=== PATIENT | female | born 1960 | race Caucasian/White ===

== ENCOUNTER 2024-01-05 13:02 | Outpatient (AMB) | payer OTHER, SELFPAY ==
--- NOTE | 2024-01-05 13:13 | A.OFFPC_ITS ---
Vital Signs 01/05/24 13:14 Height 5 ft 3 in BP 108/68 Blood Pressure Location Rt brachial Position Sitting Respiration 13 Pulse 87 Pulse Source Pulse Oximeter Pulse Oximetry (%) 99 Oxygen Delivery Method Room Air Intake Visit Reasons: ESTHETICIAN/OWNER, medication follow up Intake Note: Patient is here to establish care with [facility] [place] Patient reports she will be having open heart surgery in February 02, 2024. Patient reports she needs refills of medications. 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 Accompanied by: Self / Same As Patient Allergies No Known Allergies Allergy (Verified 01/05/24 13:23) Tobacco use date assessed: 01/05/24 Dental Screening Dental Screen Date: 01/05/24 Did you have a dental visit in the last 12 months?: Yes Did you have a dental problem in the last 6 months where you did not have access to dental care?: No Was dental information given to patient?: Patient has dentist HPI HPI Comments History of Present Illness Details The patient is a 63 year old female with a past medical history of hypertension, hyperlipidemia, GERD, aortic stenosis, subclavian artery stenosis, depression, FELICIANO, obesity s/p laparoscopoic sleeve gastrectomy presenting for follow up CV: Hypertension, hyperlipidemia, aortic stenosis. History of possible subcla vian steal. Follows with cardiology, Dr Rodriguez and Dr Keen, vascular. Carotid s/us 2020. Denies chest pain, shortness of breath. She is following with cardiology. Plan for open heart aortic valve replacement which she is anxious about but doing ok Depression: we controlled on wellbutrin and prozac. Previously and alcoholic- sober x 7 years FELICIANO: On modafinil. Follows with Dr Wilkerson Obesity: Follows with Dr Shipman. History of lap sleeve gastrectomy. Currently on wellbutrin & naltrexone. Successfully lost 70 pounds with Wegovy Preventive Mammo 03/2023 Pap 07/10/2018 ROS CONSTITUTIONAL: Denies weight loss, fever and chills. HEENT: Denies changes in vision and hearing. RESPIRATORY: Denies SOB and cough. CV: Denies palpitations and CP GI: Denies abdominal pain, nausea, vomiting and diarrhea. : Denies dysuria and urinary frequency. MSK: Denies new myalgia and joint pain. SKIN: Denies rash and pruritus. NEUROLOGICAL: Denies headache PSYCHIATRIC: Denies recent changes in mood. PHYSICAL EXAM: GENERAL: Alert and oriented x 3. NAD EYES: EOMI. Anicteric. HENT: Moist mucous membranes. No scleral icterus. No cervical lymphadenopathy. LUNGS: Clear to auscultation bilaterally. CARDIOVASCULAR: Regular rate and rhythm. +murmur ABDOMEN: Soft, non-tender +bs EXTREMITIES: No edema. Non-tender. SKIN: No rashes or lesions. Warm. NEUROLOGIC: No focal neurological deficits. CN II-XII grossly intact PSYCHIATRIC: Cooperative. Appropriate mood and affect [facility] Medical History (Updated 01/11/24 @ 10:59 by Eve Ash MD) Senile purpura Tubular adenoma of colon History of mammogram FELICIANO (obstructive sleep apnea) Major depression, recurrent Subclavian artery stenosis GERD (gastroesophageal reflux disease) Moderate aortic stenosis Hyperlipidemia Hypertension Surgical History History of colonoscopy Family History Mother Crohn disease Multiple sclerosis Father Dementia Diabetes Stroke Brother Idiopathic pulmonary fibrosis Diabetes Coronary artery disease Brother Coronary artery disease Social History Household Members: Significant Other Housing: House Alcohol intake: former Year quit: 2006 Patient Tobacco Use Status: Former Tobacco user Tobacco use type: Cigarette Cigarettes Per Day: 1 Years Smoked: 30 e-Cigarette/Vaping Use: Never Used service: No Current occupational status: retired Cognitive needs: No Hearing needs: No Vision needs: No Physical exam (Primary Care) Vital Signs: Last Vital Signs Pulse 87 01/05/24 13:14 Resp 13 01/05/24 13:14 BP 108/68 01/05/24 13:14 Pulse Ox 99 01/05/24 13:14 Oxygen Delivery Method Room Air 01/05/24 13:14 Tobacco/Smoking Status: Tobacco use Status Tobacco use date assessed 01/05/24 01/05/24 13:27 Patient Tobacco Use Status Former Tobacco user 01/05/24 13:27 Tobacco use type Cigarette 01/05/24 13:27 e-Cigarette/Vaping Use Never Used 01/05/24 13:27 Assessment and Plan Assessment & Plan (1) Hypertension: Code(s): I10 - Essential (primary) hypertension Qualifiers: Hypertension type: primary hypertension Qualified Code(s): I10 - Essential (primary) hypertension Plan: well controlled on current medications maintain weight loss continue follow up/plan for open heart valve repair (2) FELICIANO (obstructive sleep apnea): Code(s): G47.33 - Obstructive sleep apnea (adult) (pediatric) Plan: Continue sleep f/up (3) Tubular adenoma of colon: Code(s): D12.6 - Benign neoplasm of colon, unspecified (4) Major depression, recurrent: Code(s): F33.9 - Major depressive disorder, recurrent, unspecified Qualifiers: Active/Remission status: in partial remission Qualified Code(s): F33.41 - Major depressive disorder, recurrent, in partial remission (5) History of tobacco use: Code(s): Z87.891 - Personal history of nicotine dependence Orders: Orders CT lung screening 01/05/24 I10 - Essential (primary) hypertension, Z87.891 - Personal history of nicotine dependence Medications: New calcium citrate 500 mg (2 x 250 mg calcium) PO DAILY 60 tabs 0RF fluticasone propionate 50 mcg/actuation (Allergy Relief (fluticasone)) administer into each nostril 1 spray intranasal DAILY 16 grams 0RF modafinil 300 mg (1.5 x 200 mg) PO DAILY 45 tabs 0RF plecanatide (Trulance) 3 mg PO DAILY 30 tabs 0RF semaglutide (weight loss) (Wegovy) 2.4 mg (0.75 mL) subcut QWEEK 9 mL 3RF bupropion HCl XL 300 mg PO QAM 90 tabs 3RF omeprazole 20 mg PO DAILY 90 caps 3RF lorazepam 0.5 mg PO TID PRN 30 tabs 0RF anxiety aspirin (Adult Aspirin Regimen) 81 mg PO DAILY 30 tabs 0RF docusate sodium (Colace) 100 mg PO DAILY 30 caps 0RF lisinopril 10 mg PO DAILY 30 tabs 0RF multivitamin 1 tab PO DAILY 30 tabs 0RF naltrexone 50 mg PO DAILY 30 tabs 0RF fluoxetine 40 mg PO DAILY 90 caps 3RF Coding Level of Care Code Est Pt Level 5 (97219) Diagnoses Primary hypertension I10 Hypertension type: primary hypertension FELICIANO (obstructive sleep apnea) G47.33 Tubular adenoma of colon D12.6 Recurrent major depressive disorder, in partial remission F33.41 Active/Remission status: in partial remission History of tobacco use Z87.891 Time Spent (min) 46
[2024-01-05 13:14] VITALS: BP 108/68; PULSE 87; RESP 13; O2SAT 99
== END 2024-01-05 14:13 | disposition home or self-care (01) ==
PROVIDERS: PCP Internal Medicine; Visit Provider Internal Medicine
DX: I10 Essential (primary) hypertension (principal); G47.33 Obstructive sleep apnea (adult) (pediatric); D12.6 Benign neoplasm of colon, unspecified; F33.41 Major depressive disorder, recurrent, in partial remission; Z87.891 Personal history of nicotine dependence
CPT/HCPCS: 99215

== ENCOUNTER 2024-03-22 15:38 | Outpatient (AMB) | payer OTHER, SELFPAY ==
--- NOTE | 2024-03-22 15:34 | MHC.PC.OV ---
Vital Signs 03/22/24 15:47 Height 5 ft 3 in Weight 175 lb 6 oz BMI 31.1 BP 118/72 Blood Pressure Location Rt brachial Position Sitting Respiration 16 Pulse 81 Pulse Source Pulse Oximeter Pulse Oximetry (%) 98 Oxygen Delivery Method Room Air Intake Visit Reasons: Heart surgery follow up Intake Note: Heart surgery follow up Community Education Specialist Required: No Allergies No Known Allergies Allergy (Verified 01/05/24 13:23) Tobacco use date assessed: 01/05/24 Dental Screening Dental Screen Date: 01/05/24 HPI HPI Comments History of Present Illness Details The patient is a 64 year old female with a past medical history of hypertension, hyperlipidemia, GERD, aortic stenosis, subclavian artery stenosis, depression, FELICIANO, obesity s/p laparoscopoic sleeve gastrectomy presenting for follow up CV: She underwent aortic valve replacement with a bio prosthetic valve February 01. She had postoperative bradycardia and hypovolemia which required Lasix. She had VNA services at home. She was then admitted February 17 for palpitations and found to have paroxysmal atrial fibrillation. She was started on amiodarone. At her last cardiac surgery visit she discussed weaning midodrine-she is now off. Hypertension, hyperlipidemia, aortic stenosis. 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 Follows with cardiology, Dr Rodriguez and Dr Keen, vascular. Carotid s/us 2020. Denies chest pain. some shortness of breath following recent covid Depression: we controlled on wellbutrin and prozac. Previously and alcoholic-sober x 7 years FELICIANO: On modafinil. Follows with Dr Wilkerson Obesity: Follows with Dr Shipman. History of lap sleeve gastrectomy. Currently on wellbutrin & naltrexone. Successfully lost 70 pounds with Wegovy-restarting this soon but at 1mg Preventive Mammo 03/2023 Pap 07/10/2018 ROS see HPI PHYSICAL EXAM: GENERAL: Alert and oriented x 3. NAD EYES: EOMI. Anicteric. HENT: Moist mucous membranes. No scleral icterus. No cervical lymphadenopathy. LUNGS: Clear to auscultation bilaterally. CARDIOVASCULAR: Regular rate and rhythm. +murmur ABDOMEN: Soft, non-tender +bs EXTREMITIES: No edema. Non-tender. SKIN: No rashes or lesions. Warm. NEUROLOGIC: No focal neurological deficits. CN II-XII grossly intact PSYCHIATRIC: Cooperative. Appropriate mood and affect [facility] Medical History (Updated 03/22/24 @ 16:20 by Eve Ash MD) Senile purpura Tubular adenoma of colon History of mammogram FELICIANO (obstructive sleep apnea) Major depression, recurrent Subclavian artery stenosis GERD (gastroesophageal reflux disease) Moderate aortic stenosis Hyperlipidemia Hypertension Surgical History (Updated 03/22/24 @ 16:07 by Eve Ash MD) History of colonoscopy Family History Mother Crohn disease Multiple sclerosis Father Dementia Diabetes Stroke Brother Idiopathic pulmonary fibrosis Diabetes Coronary artery disease Brother Coronary artery disease Social History Household Members: Significant Other Housing: House Alcohol intake: former Year quit: 2006 Patient Tobacco Use Status: Former Tobacco user Tobacco use type: Cigarette Cigarettes Per Day: 1 Years Smoked: 30 Packs per year/per ci.50 e-Cigarette/Vaping Use: Never Used service: No Current occupational status: retired Cognitive needs: No Hearing needs: No Vision needs: No Questionnaire Thrive Questionnaire Date Thrive assessed: 03/15/24 I am a: Patient What is your living situation today?: I have a steady place to live Within the past 12 months, did the food you bought not last and you didn't have the money to get more?: Never true Within the past 12 months, did you worry whether your food would run out before you got money to buy more?: Never true Do you have trouble paying for medicines?: No Do you have trouble getting transportation to medical appointments?: No Do you have trouble paying your heating and electricity bill?: No Do you have trouble taking care of your child, family member or friend?: No Do you have trouble with day-to-day activities such as bathing, preparing meals, shopping, managing finances, etc.?: No Are you currently unemployed and looking for a job?: No Are you interested in more education?: No Please select the resources that you would like help with: None Currently or been in a relationship where the following occur: No concerns reported THRIVE Score: 0 AUDIT C Alcohol Use Questionnaire (AUDIT-C) 1. How often do you have a drink containing alcohol?: Never Total Score: 0 RYNE-7 AMB Questionnaire RYNE-7 Feeling nervous, anxious, or on edge: 0 = Not at all Not being able to stop or control worryin = Not at all Worrying too much about different things: 0 = Not at all Trouble relaxin = Not at all Being so restless that it is hard to sit still: 0 = Not at all Becoming easily annoyed or irritable: 1 = Several days Feeling afraid as if something awful might happen: 0 = Not at all Total RYNE-7 score (0-4 normal; 5-9 mild; 10-14 moderate; 15-21 severe): 1 Source: Developed by Drs. Jose Dumont, Tosha Duran, Isidro Garcia and colleagues, with an educational charles from [employer]. Physical exam (Primary Care) Vital Signs: Last Vital Signs Pulse 81 03/22/24 15:47 Resp 16 03/22/24 15:47 BP 118/72 03/22/24 15:47 Pulse Ox 98 03/22/24 15:47 Oxygen Delivery Method Room Air 03/22/24 15:47 BMI result Body Mass Index 31.1 Tobacco/Smoking Status: Tobacco use Status Tobacco use date assessed 01/05/24 03/22/24 15:34 Patient Tobacco Use Status Former Tobacco user 03/22/24 15:34 Tobacco use type Cigarette 03/22/24 15:34 e-Cigarette/Vaping Use Never Used 03/22/24 15:34 Thrive Assessment: Date of Thrive Assessment Date Thrive assessed 03/15/24 03/22/24 15:34 Currently or been in a relationship where the following occur: No concerns reported Coding Level of Care Code Est Pt Level 4 (90292) Diagnoses Aortic valve replaced Z95.2 Assessment & Plan Assessment & Plan (1) Aortic valve replaced: Comment: needs dental prophylaxis Code(s): Z95.2 - Presence of prosthetic heart valve Category: Surgical Plan: Hold lisinopril -blood pressure maintains well controlled. Orders: Orders Alpha 1 Anti-trypsin 03/22/24 Z79.899 - Other [facility] (current[facility] drug therapy Medications: New amoxicillin one hour prior to dental appointment 2,000 mg (4 x 500 mg) PO ONCE PRN 20 tabs 3RF dental prophylaxis
[2024-03-22 15:47] VITALS: BP 118/72; PULSE 81; RESP 16; O2SAT 98; BMI 31.1
== END 2024-03-22 17:00 | disposition home or self-care (01) ==
PROVIDERS: PCP Internal Medicine; Visit Provider Internal Medicine
DX: Z95.2 Presence of prosthetic heart valve (principal)

== ENCOUNTER → 2024-03-22 15:38 | Outpatient (BNVA) | payer OTHER, SELFPAY | PROVIDERS: PCP Internal Medicine; Visit Provider Internal Medicine ==

== ENCOUNTER 2024-07-12 08:19 | Outpatient (AMB) | payer OTHER, SELFPAY ==
--- NOTE | 2024-07-12 08:23 | MHC.PC.OV ---
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 She had postoperative bradycardia and hypovolemia which required Lasix. She had VNA services at home. She was then admitted February 17 for palpitations and found to have paroxysmal atrial fibrillation. She was started on amiodarone. At her last cardiac surgery visit she discussed weaning midodrine-she is now off. Hypertension, hyperlipidemia, aortic stenosis. 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 Follows with cardiology, Dr Rodriguez and Dr Keen, vascular. Carotid s/us 2020. Denies chest pain. Depression: we controlled on wellbutrin and prozac. Previously and alcoholic-sober x 7 years FELICIANO: On modafinil. Follows with Dr Wilkerson Obesity: Follows with Dr Shipman. History of lap sleeve gastrectomy. Currently on wellbutrin & naltrexone. Successfully lost 70 pounds with Wegovy-on 2.4 currently but going to taper down on 1.7. Despite weight loss suffering from cervicalgia, thoracic and lumbar back pain. Preventive Mammo 03/2023-due, ordered. DXA ordered. Pap 07/10/2018 Colon cancer screening UTD-Dr Kunz ROS see HPI PHYSICAL EXAM: GENERAL: Alert and oriented x 3. NAD EYES: EOMI. Anicteric. HENT: Moist mucous membranes. No scleral icterus. No cervical lymphadenopathy. LUNGS: Clear to auscultation bilaterally. CARDIOVASCULAR: Regular rate and rhythm. +murmur ABDOMEN: Soft, non-tender +bs EXTREMITIES: No edema. Non-tender. SKIN: No rashes or lesions. Warm. NEUROLOGIC: No focal neurological deficits. CN II-XII grossly intact PSYCHIATRIC: Cooperative. Appropriate mood and affect [facility] Medical History (Updated 07/12/24 @ 09:20 by Eve Ash MD) Senile purpura Tubular adenoma of colon History of mammogram FELICIANO (obstructive sleep apnea) Major depression, recurrent Subclavian artery stenosis GERD (gastroesophageal reflux disease) Moderate aortic stenosis Hyperlipidemia Hypertension Surgical History History of colonoscopy Family History Mother Crohn disease Multiple sclerosis Father Dementia Diabetes Stroke Brother Idiopathic pulmonary fibrosis Diabetes Coronary artery disease Brother Coronary artery disease Social History (Updated 07/12/24 @ 08:31 by Mariel Kaye CMA) Household Members: Significant Other Housing: House Alcohol intake: former Year quit: 2006 Patient Tobacco Use Status: Former Tobacco user Tobacco use type: Cigarette Cigarettes Per Day: 1 Years Smoked: 30 e-Cigarette/Vaping Use: Never Used service: No Current occupational status: retired Cognitive needs: No Hearing needs: No Vision needs: No Questionnaire PHQ-9 Over the last 2 weeks, how often have you been bothered by any of the following problems? 1. Little interest or pleasure in doing things: not at all 2. Feeling down, depressed, or hopeless: not at all 3. Trouble falling or staying asleep, or sleeping too much: not at all 4. Feeling tired or having little energy: several days 5. Poor appetite or overeating: not at all 6. Feeling bad about yourself - or that you are a failure or have let yourself or your family down: not at all 7. Trouble concentrating on things, such as reading the newspaper or watching television: not at all 8. Moving or speaking so slowly that other people could have noticed. Or the opposite - being so fidgety or restless that you have been moving around a lot more than usual: not at all 9. Thoughts that you would be better off or of hurting yourself in some way: not at all Total score: 1 Depression Screening Interpretation: Negative Depression Screening Done: Yes 59947 - PHQ-9 Billing: Yes Source: Developed by Drs. Jose Dumont, Tosha BIsidro Campos and colleagues, with an educational charles from [employer]. Thrive Questionnaire Date Thrive assessed: 07/06/24 I am a: Patient What is your living situation today?: I have a steady place to live Within the past 12 months, did the food you bought not last and you didn't have the money to get more?: Never true Within the past 12 months, did you worry whether your food would run out before you got money to buy more?: Never true Do you have trouble paying for medicines?: No Do you have trouble getting transportation to medical appointments?: No Do you have trouble paying your heating and electricity bill?: No Do you have trouble taking care of your child, family member or friend?: No Do you have trouble with day-to-day activities such as bathing, preparing meals, shopping, managing finances, etc.?: No Are you currently unemployed and looking for a job?: No Are you interested in more education?: No Please select the resources that you would like help with: None Currently or been in a relationship where the following occur: No concerns reported THRIVE Score: 0 AUDIT C Alcohol Use Questionnaire (AUDIT-C) 1. How often do you have a drink containing alcohol?: Never 3. How often do you have six or more drinks on one occasion?: Never Total Score: 0 RYNE-7 AMB Questionnaire RYNE-7 Date RYNE - 7 assessed: 07/12/24 Feeling nervous, anxious, or on edge: 0 = Not at all Not being able to stop or control worryin = Not at all Worrying too much about different things: 0 = Not at all Trouble relaxin = Not at all Being so restless that it is hard to sit still: 0 = Not at all Becoming easily annoyed or irritable: 1 = Several days Feeling afraid as if something awful might happen: 0 = Not at all Total RYNE-7 score (0-4 normal; 5-9 mild; 10-14 moderate; 15-21 severe): 1 Source: Developed by Drs. Jose Dumont, Isidro Guy and colleagues, with an educational charles from [employer]. RYNE-7 Assessment Billing RYNE-7 Assessment Tool: RYNE-7 Assessment 50502 Physical exam (Primary Care) Vital Signs: Last Vital Signs Pulse 82 01/27/25 08:30 BP 124/70 07/12/24 08:30 Pulse Ox 99 07/12/24 08:30 Oxygen Delivery Method Room Air 07/12/24 08:30 BMI result Body Mass Index 28.7 Tobacco/Smoking Status: Tobacco use Status Tobacco use date assessed 01/05/24 07/12/24 08:23 Patient Tobacco Use Status Former Tobacco user 07/12/24 08:31 Tobacco use type Cigarette 07/12/24 08:31 e-Cigarette/Vaping Use Never Used 07/12/24 08:31 PHQ-9: PHQ-9 Score PHQ-9: Total score 1 07/12/24 08:31 Depression Screening Interpretation: Negative Thrive Assessment: Date of Thrive Assessment Date Thrive assessed 07/06/24 07/12/24 08:23 Currently or been in a relationship where the following occur: No concerns reported Coding Level of Care Code Est Pt Prev Care 40-64y(30846) Diagnoses Physical exam Z00.00 Recurrent major depressive disorder, in partial remission F33.41 Active/Remission status: in partial remission Primary hypertension I10 Hypertension type: primary hypertension Chronic midline back pain, unspecified back location M54.9; G89.29 Back pain location: back pain in unspecified location Chronicity: chronic Back pain laterality: midline Macromastia N62 Additional Codes RYNE-7 Assessment Billing - RYNE-7 Assessment Tool: RYNE-7 Assessment 12981 ([id number]) PHQ-9 - 26242 - PHQ-9 Billing: Yes ([id number]) Assessment & Plan Assessment & Plan (1) Physical exam: Code(s): Z00.00 - Encounter for general adult medical examination without abnormal findings Category: Medical Plan: Preventive measures reviewed. UTD History reviewed. Medications reconciled (2) Major depression, recurrent: Code(s): F33.9 - Major depressive disorder, recurrent, unspecified Category: Medical Qualifiers: Active/Remission status: in partial remission Qualified Code(s): F33.41 - Major depressive disorder, recurrent, in partial remission Plan: stable on current medications (3) Hypertension: Code(s): I10 - Essential (primary) hypertension Category: Medical Qualifiers: Hypertension type: primary hypertension Qualified Code(s): I10 - Essential (primary) hypertension Plan: well controlled. (4) Back pain: Code(s): M54.9 - Dorsalgia, unspecified Category: Medical Qualifiers: Back pain location: back pain in unspecified location Chronicity: chronic Back pain laterality: midline Qualified Code(s): M54.9 - Dorsalgia, unspecified; G89.29 - Other chronic pain Plan: referral to plastic for consideration of breast reduction (5) Macromastia: Code(s): N62 - Hypertrophy of breast Category: Medical Plan: see above. despite weight loss back pain due to large breasts has persisted Orders: Orders Complete Blood Count Auto Diff Today F33.41 - Major depressive disorder, recurrent, in partial remission, I10 - Essential (primary) hypertension, Z13.0 - Encounter for screening for diseases of the blood and blood-forming organs and certain disorders involving the immune mechanism Lipid Panel Today F33.41 - Major depressive disorder, recurrent, in partial remission, I10 - Essential (primary) hypertension, Z13.0 - Encounter for screening for diseases of the blood and blood-forming organs and certain disorders involving the immune mechanism Hemoglobin A1c Today F33.41 - Major depressive disorder, recurrent, in partial remission, I10 - Essential (primary) hypertension, Z13.0 - Encounter for screening for diseases of the blood and blood-forming organs and certain disorders involving the immune mechanism TSH reflex Free T4 Today F33.41 - Major depressive disorder, recurrent, in partial remission, I10 - Essential (primary) hypertension, Z13.0 - Encounter for screening for diseases of the blood and blood-forming organs and certain disorders involving the immune mechanism MM screening mammo BI Today Z12.31 - Encounter for screening mammogram for malignant neoplasm of breast Comprehensive Met. Panel Today F33.41 - Major depressive disorder, recurrent, in partial remission, I10 - Essential (primary) hypertension, Z13.0 - Encounter for screening for diseases of the blood and blood-forming organs and certain disorders involving the immune mechanism XR DEXA axial skeleton Today M89.9 - Disorder of bone, unspecified, M94.9 - Disorder of cartilage, unspecified Referrals Thoracic/General Surgery Referral Z87.891 - Personal history of nicotine dependence Plastic Surgery Referral N62 - Hypertrophy of breast
[2024-07-12 08:30] VITALS: BP 124/70; PULSE 82; O2SAT 99; BMI 28.7
--- OUTSIDE RECORDS SUMMARY | 2024-07-12 12:38 | XMS_ITS | Clinical Summary ---
Author Organization 175 [facility] Address [address] [place] [address] Phone Care Team Providers Care Dental Therapist Name Role Phone Eve Ash MD Primary Care Provider [phone] Allergies No known active allergies Medications Medication Sig Dispensed Refills Start Date End Date Status atorvastatin (LIPITOR) 20 mg tablet Take 1 tablet (20 mg total) by mouth 1 (one) time each day. 05/07/2022 Active buPROPion XL (WELLBUTRIN XL) 300 mg 24 hr tablet Take 1 tablet (300 mg total) by mouth 1 (one) time each day. 05/07/2022 Active FLUoxetine (PROzac) 40 mg capsule Take 1 capsule (40 mg total) by mouth 1 (one) time each day. 06/28/2022 Active lisinopriL (PRINIVIL,ZESTRIL ) 10 mg tablet Take 1 tablet (10 mg total) by mouth 1 (one) time each day. 06/14/2022 Active modafiniL (PROVIGIL) 200 mg tablet TAKE 1 & 1/2 TABLETS BY MOUTH DAILY IN AM 06/26/2022 Active omeprazole (PriLOSEC) [address] capsule 07/08/2022 Active meloxicam (MOBIC) 15 mg tablet TAKE 1 TABLET BY MOUTH ONCE EVERY DAY NEEDED FOR PAIN 06/09/2022 Active plecanatide (Trulance) 3 mg tablet Take 1 tablet (3 mg total) by mouth 1 (one) time each day. 05/08/2022 Active aspirin 81 mg EC tablet Take 1 tablet (81 mg total) by mouth 1 (one) time each day. Active FLUTICASONE PROPIONATE NASL by Nasal route. Active semaglutide (Wegovy) 1.7 mg/0.75 mL injection penIndications:Ov er weight Inject 1.7 mg under the skin every 7 (seven) days. 3 mL 2 06/15/2024 Active ondansetron (ZOFRAN) 4 mg tablet TAKE 1 TABLET (4 MG TOTAL) BY MOUTH EVERY 8 HOURS IF NEEDED FOR NAUSEA OR VOMITING FOR UP TO 7 DAYS. 18 tablet 1 07/06/2024 Active semaglutide (Wegovy) 2.4 mg/0.75 mL injection pen Inject 2.4 mg under the skin every 7 (seven) days for 28 days. 3 mL 06/08/2024 06/15/2024 Discontinued ondansetron (ZOFRAN) 4 mg tablet Take 1 tablet (4 mg total) by mouth every 8 (eight) hours if needed for nausea or vomiting for up to 7 days. 21 tablet 06/08/2024 07/06/2024 Discontinued Active Problems Problem Noted Date Diagnosed Date Class 2 obesity with body ma ss index (BMI) of 38.0 to 38.9 in adult 05/04/2024 Encounters Date Type Department Care Team Description 06/15/2024 9:15 AM EST Office Visit Bariatric Surgery - [address] [phone] Samson Shipman MD Over weight (Primary Dx) 04/30/2024 Telephone Bariatric Surgery [address] [phone] Samson Shipman MD Advice Only (Nausea) from Last 3 Months Social History Tobacco Use Types Packs/Day Years Used Date Smoking Tobacco: Former Smokeless Tobacco: Never Sex and Gender Information Value Date Recorded Sex Assigned at Not on file Gender Identity Not on file Sexual Orientation Not on file Job Start Date Occupation Industry Not on file Not on file Not on file Obstetrics History Last Filed Vital Signs Vital Sign Reading Time Taken Comments Blood Pressure 102/65 06/15/2024 9:10 AM EST Pulse 82 06/15/2024 9:10 AM EST Temperature 36.5 ??C (97.7 ??F) 06/15/2024 9:10 AM ES T Respiratory Rate - - Oxygen Saturation - - Inhaled Oxygen Concentration - - Weight 73.5 kg (162 lb) 06/15/2024 9:10 AM EST Height 160 cm (5' 3 ) 06/15/2024 9:10 AM EST Body Mass Index 28.7 06/15/2024 9:10 AM EST Plan of Treatment Upcoming Encounters Date Type Department Care Team (Late st Contact Info) Description 12/14/2024 10:00 AM EDT Office Visit Bariatric Surgery - [place] 175 [facility] [address] [place] [phone] Samson Shipman MD 175 [facility] [address] [place] [address] Health Maintenance Due Date Last Done Comments Breast Cancer Screening 1960 Cervical Cancer Screening: Pap Smear 01/06/1981 Colorectal Cancer Screening: Colonoscopy 07/15/2023 Depression Screening 07/15/2023 HIV Screening 07/15/2023 Hepatitis C Screening 07/15/2023 Social Influencers of Health Screening 07/15/2023 COVID-19 Vaccine ( season) 2024 03/10/2023, 03/07/2023, 12/06/2021, Additional history exists Influenza Vaccine (#1) 2024 , 03/25/2022, 02/26/2022, Additional history exists Hypertension/CHF/CAD Annual BMP Blood Test 08/06/2024 08/06/2023 Cholesterol Screening (Lipid Panel) 09/04/2027 09/03/2022 DTaP,Tdap,and Td Vaccines (4 - Td or Tdap) 08/05/2032 08/05/2022, 11/22/2015, 10/08/2005 RSV Immunization Patients 60+ Years Old (1 - 1-dose 75+ series) 01/06/2035 Zoster Vaccines Completed 08/30/2022, 03/16, 12/27/2020, Additional history exists HIB Vaccines Aged Out No longer eligi ble based on patient's age to complete this topic HPV Vaccines Aged Out No longer eligi ble based on patient's age to complete this topic Hepatitis A Vaccines Aged Out No long er eligible based on patient's age to complete this topic Hepatitis B Vaccines Aged Out No long er eligible based on patient's age to complete this topic IPV Vaccines Aged Out No longer eligi ble based on patient's age to complete this topic MMR Vaccines Aged Out No longer eligi ble based on patient's age to complete this topic Meningococcal ACWY Vaccine Aged Out N o longer eligible based on patient's age to complete this topic Pneumococcal Vaccine: Pediatrics (0 to 5 Years) and At-Risk Patients (6 to 64 Years) Aged Out No longer eligible based on patient's age to complete this topic RSV Immunization Patients Under 20 months Aged Out No longer eligible based on patient's age to complete this topic Varicella Vaccines Aged Out No longer eligible based on patient's age to complete this topic Procedures Procedure Name Priority Date/Time Associated Diagnosis Comments ANNUAL BMP BLOOD TEST Routine 08/06/2023 LIPID PANEL Routine 09/03/2022 from Last 3 Months or Most Recently Relevant to Health Maintenance Results * Annual BMP Blood Test (08/06/2023) Annual BMP Blood Test abstracted Historical Provider [facility] * Lipid panel (09/03/2022) LDL/HDL Ratio 2 0 - 4 Triglycerides 109 0 - 150 mg/dL Cholesterol 190 0 - 200 mg/dL HDL 82 40 mg/dL LDL Cholesterol 87 0 - 100 mg/dL Blood Venous blood specimen / Unknown Historical Provider LAB BLOOD ORDERAB LES from Last 3 Months or Most Recently Relevant to Health Maintenance Care Teams Dental Therapist Relationship Specialty Start Date End Date Eve Ash MD PCP - General 06/05/22
--- OUTSIDE RECORDS SUMMARY | 2024-07-12 12:38 | XMS_ITS | Encounter Summary ---
Author Organization [facility] Address [address] [place] [address] Care Team Providers Care Manager Relocation Name Role Phone Eve Ash MD Primary Care Provider [phone] Reason for Visit * Reason Comments Follow-up 3 month follow up Encounter Details Date Type Department Care Team ([facility] st Contact Info) Description 06/15/2024 9:15 AM EST Office Visit Bariatric Surgery - [place] 175 [facility] [address] [place] [phone] Samson Shipman MD [address] [facility] [address] [place] [address] Over weight (Primary Dx) Social History Tobacco Use Types Packs/Day Years Used Date Smoking Tobacco: Former Smokeless Tobacco: Never Sex and Gender Information Value Date Recorded Sex Assigned at Not on file Gender Identity Not on file Sexual Orientation Not on file Job Start Date Occupation Industry Not on file Not on file Not on file documented as of this encounter Last Filed Vital Signs Vital Sign Reading [...] Mass Index 28.7 06/15/2024 9:10 AM EST documented in this encounter Ordered Prescriptions Prescription Sig Dispensed Refills Start Date End Da te semaglutide (Wegovy) 1.7 mg/0.75 mL injection penIndications:Over weight Inject 1.7 mg under the skin every 7 (seven) days. 3 mL 2 06/15/2024 documented in this encounter Progress Notes * Samson Shipman MD - 06/15/2024 9:15 AM EST Ms. Crowley is a 64 y.o. year old female who presents for surgical follow up regarding obesity. HPI: Ms. Crowley has been using semaglutide, 2.4 mg. Having some nausea. BMI is 28.7. No HTN medication since January. S/P aortic valve replacement. ROS: GENERAL: No malaise, significant unintentional weight loss, fever, chills or night sweats. HEENT: No changes in hearing or vision, no nose bleeds or other nasal problems. NECK: No lumps, goiter, pain or significant neck swelling RESPIRATORY: No cough, wheezing or shortness of breath CARDIOVASCULAR: No chest pain, leg swelling or palpitations. GI: No abdominal discomfort, nausea, vomiting, or change in bowel habits. : No dysuria, frequency or incontinence. SKIN: No lesions, rash or itching. HEMATOLOGY: No prolonged bleeding, easy bruisability. LYMPHOLOGY No swollen nodes. MUSCULOSKELETAL: No abnormalities. NEURO: No abnormalities. All other systems reviewed which are negative. PAST MEDICAL HISTORY: Patient Active Problem List Diagnosis Date Noted Date Diagnosed Class 2 obesity with body mass index (BMI) of 38.0 to 38.9 in adult 05/04/2024 PAST SURGICAL HISTORY: No past surgical history on file. SOCIAL HISTORY: Social History Tobacco Use Smoking status: Former Smokeless tobacco: Never Substance Use Topics Alcohol use: Not on file FAMILY HISTORY: No family history on file. No family status information on file. MEDICATIONS: Medications Discontinued During This Encounter Medication Reason semaglutide (Wegovy) 2.4 mg/0.75 mL injection pen ACTIVE MEDICATIONS: No outpatient medications have been marked as taking for the 06/15/24 encounter (Office Visit) withSamson Shipman MD. ALLERGIES: No Known Allergies PHYSICAL EXAM: Visit Vitals BP 102/65 Pulse 82 Temp 36.5 ??C (97.7 ??F) (Oral) Ht 1.6 m (63 ) Wt 73.5 kg (162 lb) BMI 28.70 kg/m?? Smoking Status Former BSA 1.77 m?? APPEARANCE: Alert and oriented and in no acute distress EYES: Conjunctiva normal and sclera normal and anicteric. NECK: Neck supple with no adenopathy. HEART: RRR with normal S 1 and S 2, no murmurs, no gallops. LUNG: Clear to auscultation LYMPH NODES: No gross cervical or clavicular lymphadenopathy. ABDOMEN: Bowel sounds normoactive, soft, non-tender, non-distended, EXTREMITIES: Extremities warm and well perfused without clubbing, cyanosis, or edema. SKIN: Skin color and texture normal. No rashes or lesions. NEUROLOGIC: Alert and oriented ??3. No motor or sensory deficits in the extremities. LABS/IMAGING: ASSESSMENT: 1. Over weight PLAN: 1. Will switch to 1.7 mg for maintenance. F/U in 6 moths. documented in this encounter Plan of Treatment Upcoming Encounters Date Type Department Care Team (Late st Contact Info) Description 12/14/2024 10:00 AM EDT Office Visit Bariatric Surgery - [place] 175 [facility] [address] [place] [phone] Samson Shipman MD [address] [phone] documented as of this encounter Visit Diagnoses Diagnosis Over weight- Primary Overweight documented in this encounter Discontinued Medications Medication Sig Discontinue Reason Start Date End Da te semaglutide (Wegovy) 2.4 mg/0.75 mL injection pen Inject 2.4 mg under the skin every 7 (seven) days for 28 days. 06/08/2024 06/15/2024 documented as of this encounter Care Teams Manager Relocation Relationship Specialty Start Date End Date Eve Ash MD PCP - General 06/05/22 documented as of this encounter
== END 2024-07-12 09:17 | disposition home or self-care (01) ==
PROVIDERS: PCP Internal Medicine; Visit Provider Internal Medicine
DX: Z00.00 Encounter for general adult medical examination without abnormal findings (principal); F33.41 Major depressive disorder, recurrent, in partial remission; I10 Essential (primary) hypertension; M54.9 Dorsalgia, unspecified; G89.29 Other chronic pain; N62 Hypertrophy of breast

== ENCOUNTER → 2024-07-12 08:19 | Outpatient (BNVA) | payer OTHER, SELFPAY | PROVIDERS: PCP Internal Medicine; Visit Provider Internal Medicine | DX: Z00.00 Encounter for general adult medical examination without abnormal findings (principal); F33.41 Major depressive disorder, recurrent, in partial remission; I10 Essential (primary) hypertension; G89.29 Other chronic pain; M54.9 Dorsalgia, unspecified; N62 Hypertrophy of breast; G47.33 Obstructive sleep apnea (adult) (pediatric); E66.9 Obesity, unspecified; Z95.2 Presence of prosthetic heart valve; Z98.84 Bariatric surgery status | CPT/HCPCS: 96127 ==

== ENCOUNTER 2024-07-12 09:21 | Outpatient (REF) | payer OTHER, SELFPAY ==
[2024-07-12 11:26] LABS: MANUAL DIFF FLAG NO
[2024-07-12 11:35] LABS: Basophils Percent Auto 0.4 % (0-2); Eosinophils Percent Auto 0.7 % (0-4); Hematocrit 37.5 % (37.0-47.0); Hemoglobin 11.3 g/dl (12.0-16.0); Imm Gran Abs Auto 0.01 X10*3/uL (0.00-0.03); Imm Gran Pct Auto 0.2 % (0.0-0.4); Lymphocytes Absolute Auto 1.2 X10*3/uL (1.2-4.9); Lymphocytes Percent Auto 21.6 % (20-40); Mean Corpuscular HGB Conc 30.1 g/dl (31.0-35.0); Mean Corpuscular Hemoglobin 24.2 pg (27.0-33.0); Mean Corpuscular Volume 80.5 fL (80.0-98.0); Mean Platelet Volume 9.5 fL (9.4-12.3); Monocytes Absolute Auto 0.4 X10*3/uL (0.1-1.2); Monocytes Percent Auto 8.1 % (2-11); Neutrophils Absolute Auto 3.7 x10*3/uL (2.0-8.3); Platelet Count 266 X10*3/uL (160-400); Red Blood Count 4.66 X10*6/uL (4.20-5.50); Red Cell Distribution Width 20.3 % (11.0-16.0); White Blood Count 5.4 X10*3/uL (4.8-10.8)
[2024-07-12 11:47] LABS: Estimated Average Glucose 103 mg/dL; Hemoglobin A1C 101.7128 umol/L; Hemoglobin A1c % 5.2 % (<6.0); Total Hemoglobin (HGBA1C) 3038.0968 umol/L
[2024-07-12 12:11] LABS: Alanine Aminotransferase 14 U/L (0-31); Albumin Level 3.9 g/dL (3.5-5.0); Alkaline Phosphatase 95 U/L (39-117); Anion Gap 8 (12-20); Aspartate Amino Transferase 22 U/L (5-31); Bilirubin Total 0.2 mg/dL (0.0-1.0); Blood Urea Nitrogen 14 mg/dL (9-16); Calcium 9.2 mg/dL (8.4-10.2); Carbon Dioxide 29 mmol/L (22-29); Chloride 108 mmol/L (96-108); Cholesterol 181 mg/dL (<200); Estimated Glomerular Filt Rate > 60; Glucose Random 86 mg/dL (60-115); HDL Cholesterol 78 mg/dL (>40); LDL Cholesterol Calculated 91 mg/dL (<100); Potassium 3.9 mmol/L (3.3-5.1); Sodium 141 mmol/L (135-145); Total Protein 6.7 g/dL (6.5-8.0); Triglycerides 62 mg/dL (<150)
[2024-07-12 12:28] LABS: TSH reflex Free T4 0.62 uIU/mL (0.32-4.0)
[2024-07-13 22:32] LABS: Alpha 1 Anti-trypsin 178 mg/dL (83-199)
== END 2024-07-12 09:22 | disposition home or self-care (01) ==
LOC: HO.WFDLDS 09:21
PROVIDERS: Visit Provider Internal Medicine
DX: I10 Essential (primary) hypertension (principal); Z79.899 Other long term (current) drug therapy; Z13.0 Encounter for screening for diseases of the blood and blood-forming organs and certain disorders involving the immune mechanism; F33.41 Major depressive disorder, recurrent, in partial remission
CPT/HCPCS: 36415; 80053; 80061; 82103; 83036; 84443; 85025

== ENCOUNTER 2024-08-18 13:06 | Outpatient (REF) | payer OTHER, SELFPAY ==
--- NOTE | ~2024-08-18 | MM_ITS ---
EXAMINATION: DXA BONE DENSITY AXIAL HISTORY: Estrogen deficiency TECHNIQUE: TheTakes Dual energy absorptiometry (DEXA) of the lumbar spine, total left hip, and femoral neck was performed. COMPARISON: There are no prior studies for comparison. FINDINGS: The bone mineral density of the lumbar spine is 0.925 with a T-score of -2.1, and a Z-score of -0.8. The bone mineral density of the left total hip is 0.847 with a T-score of -1.3, and a Z-score of -0.2. The bone mineral density of the left femoral neck is 0.720 with a T-score of -2.3, and a Z-score of -1.0. FRACTURE RISK: The FRAX index suggests a risk of major osteoporotic fracture of 11.9%, and of hip fracture 2.1%. MM/XR DEXA axial skeleton IMPRESSION: Based on bone mineral density, and according to World Health Organization (WHO) criteria, the diagnosis is consistent with osteopenia. All bone density values are in grams per centimeter squared (g/cm2). Statistically, 68% of repeat scans fall within 1 SD (+/- 0.010 g/cm2 for AP spine L1-L4) and 1 SD (+/- 0.012 g/cm2 for femur total) FRAX is a trademark of the [employer]'s [place] [employer] Metabolic Bone Disease, a World Health Organization (WHO) Collaborating Center. Electronically signed by: Jose Bonds MD 08/20/2024 07:41 AM EST
--- NOTE | ~2024-08-18 | MM_ITS ---
EXAMINATION: MM SCREENING DIGITAL BREAST TOMOSYNTHESIS, BILATERAL CLINICAL INFORMATION: Screening. Asymptomatic. COMPARISON: Mammography: Comparison is made with available priors TECHNIQUE: Digital breast mammography with tomosynthesis is performed in both the craniocaudal and mediolateral oblique views along with computer-aided detection (CAD). FINDINGS: There are scattered areas of fibroglandular density (ACR BI-RADS breast composition Category b). There are no significant masses, abnormal calcifications, or other abnormalities. MM/MM tomosynthesis screening BI IMPRESSION: No mammographic evidence of malignancy. ASSESSMENT: BI-RADS BI-RADS 1 - Negative RECOMMENDATION: Routine annual mammography screening. 1 year F/U This examination should not preclude the clinical evaluation of a suspicious palpable abnormality. This patient's information was entered into a reminder system with a target due date for their next mammogram. Electronically signed by: Shanna Easley DO 08/27/2024 05:02 PM EDT
--- OUTSIDE RECORDS SUMMARY | 2024-08-18 15:32 | XMS_ITS | Clinical Summary ---
Author Organization 175 [facility] Address [address] [place] [address] Phone Care Team Providers Care Revenue Analyst Name Role Phone Eve Ash MD Primary Care Provider [phone] Allergies No known active allergies Medications atorvastatin (LIPITOR) 20 mg tablet Take 1 [...] (one) time each day. 06/28/2022 Active lisinopriL (PRINIVIL,ZESTR IL) 10 mg tablet Take 1 tablet (10 mg total) by mouth 1 (one) time each day. 06/14/2022 Active modafiniL (PROVIGIL) 200 mg tablet TAKE 1 & 1/2 TABLETS BY MOUTH DAILY IN AM 06/26/2022 Active omeprazole (PriLOSEC) [address] capsule 07/08/2022 Activ e meloxicam (MOBIC) 15 mg tablet TAKE 1 [...] Active semaglutide (Wegovy) 1.7 mg/0.75 mL injection penIndications: Over weight Inject 1.7 mg under the skin every 7 (seven) days. 3 mL 2 06/15/2024 Active ondansetron (ZOFRAN) 4 mg tablet TAKE 1 TABLET (4 MG TOTAL) BY MOUTH EVERY 8 HOURS IF NEEDED FOR NAUSEA OR VOMITING FOR UP TO 7 DAYS. 18 tablet 1 07/06/2024 Active Active Problems Problem Noted Date Diagnosed Date Class 2 obesity with body ma ss index (BMI) of 38.0 to 38.9 in adult 05/04/2024 Encounters Date Type Department Care Team Description 06/15/2024 9:15 AM EST Office Visit Bariatric Surgery [facility] [address] [phone] Samson Shipman MD Over weight (Primary Dx) from Last 3 Months Social History Tobacco Use Types Packs/Day Years Used Date Smoking Tobacco: Former Smokeless Tobacco: Never Comments Unknown Sex and Gender Information Value Date Recorded Sex Assigned at Not on file Legal Sex Female 7:41 AM EST Gender Identity Not on file Sexual Orientation Not on file Obstetrics History Last Filed [...] 10:00 AM EDT Office Visit Bariatric Surgery [facility] [address] [phone] Samson Shipman MD [address] [address] Health Maintenance Due Date Last Done Comments Breast Cancer Screening 1960 Cervical Cancer Screening: Pap Smear 01/06/1981 Colorectal Cancer Screening: Colonoscopy 07/15/2023 Depression Screening 07/15/2023 HIV Screening 07/15/2023 Hepatitis C Screening 07/15/2023 Social Influencers of Health Screening 07/15/2023 Influenza Vaccine (#1) 2024 , 03/25/2022, 02/26/2022, Additional history exists Hypertension/CHF/CAD Annual BMP Blood Test 08/06/2024 08/06/2023 Cholesterol Screening (Lipid Panel) 09/04/2027 09/03/2022 DTaP,Tdap,and Td Vaccines (4 - Td or Tdap) 08/05/2032 08/05/2022, 11/22/2015, 10/08/2005 RSV Immunization Patients 60+ Years Old (1 - 1-dose 75+ series) 01/06/2035 Zoster Vaccines Completed 08/30/2022, 03/16, 12/27/2020, Additional history exists COVID-19 Vaccine Completed 07/12/2024, , 03/07/2023, Additional history exists Pneumococcal Vaccine: 50+ Years Completed 07/12/2024 Pneumococcal Vaccine: Pediatrics (0 to 5 Years) and At-Risk Patients (6 to 64 Years) Aged Out 07/12/2024 No longer eligible based on patient's age to complete this topic HIB Vaccines Aged Out No longer eligi [...] patient's age to complete this topic Meningococcal B Vacine Aged Out No lo nger eligible based on patient's age to complete [...] Annual BMP Blood Test abstracted Historical Provider MD HEALTH MAINTENANCE Final Result * Lipid panel (09/03/2022) LDL/HDL Ratio 2 0 - 4 Triglycerides 109 0 - 150 mg/dL Cholesterol 190 0 - 200 mg/dL HDL 82 >=40 mg/dL LDL Cholesterol 87 0 - 100 mg/dL Blood Venous blood specimen / Unknown Historical Provider LAB BLOOD ORDERABLES Roselyn l Result from Last 3 Months or Most Recently Relevant to Health Maintenance Insurance [facility] Care Teams Revenue Analyst Relationship Specialty Start Date End Date Eve Ash MD PCP - General 06/05/22
== END 2024-08-18 13:07 | disposition home or self-care (01) ==
LOC: HO.MAMMO 13:06
PROVIDERS: PCP Internal Medicine; Visit Provider Internal Medicine
DX: Z12.31 Encounter for screening mammogram for malignant neoplasm of breast (principal); Z13.820 Encounter for screening for osteoporosis; M89.9 Disorder of bone, unspecified; M94.9 Disorder of cartilage, unspecified; E28.39 Other primary ovarian failure
CPT/HCPCS: 77063; 77067; 77080

== ENCOUNTER → 2024-08-18 13:30 | Outpatient (BNV) | payer OTHER, SELFPAY | PROVIDERS: PCP Internal Medicine; Visit Provider Radiology Diagnostic Radiology | DX: Z12.31 Encounter for screening mammogram for malignant neoplasm of breast (principal) | CPT/HCPCS: 77063; 77067 ==

== ENCOUNTER 2025-01-10 10:10 | Outpatient (AMB) | payer MEDICARE, OTHER, SELFPAY ==
--- NOTE | 2025-01-10 10:24 | A.OFFPC_ITS ---
Vital Signs 01/10/25 10:28 Height 5 ft 3 in Weight 152 lb BMI 26.9 BP 122/84 Blood Pressure Location Rt brachial Position Sitting Respiration 14 Pulse 76 Pulse Source Pulse Oximeter Pulse Oximetry (%) 98 Oxygen Delivery Method Room Air Intake Visit Reasons: Follow up Intake Note: Follow up Supervisor Stave Cutting Required: No Allergies No Known Allergies Allergy (Verified 01/10/25 10:24) Tobacco use date assessed: 01/10/25 Fall risk assessment: 1 Fall in past year Last assessed Fall Risk: 01/10/25 Dental Screening Dental Screen Date: 01/10/25 Did you have a dental visit in the last 12 months?: Yes Did you have a dental problem in the last 6 months where you did not have access to dental care?: No Was dental information given to patient?: Patient has dentist HPI HPI Comments History of Present Illness Details The patient is a 64 year old female with a past medical history of hypertension, hyperlipidemia, GERD, aortic stenosis, subclavian artery stenosis, depression, FELICIANO, obesity s/p laparoscopoic sleeve gastrectomy presenting for follow up CV: She underwent aortic valve replacement with a bio prosthetic valve February 01. She had postoperative bradycardia and hypovolemia which required Lasix. She had VNA services at home. She was then admitted February 17 for palpitations and found to have paroxysmal atrial fibrillation. She was started on amiodarone. At her last cardiac surgery visit she discussed weaning midodrine-she is now off. Hypertension, hyperlipidemia, aortic stenosis. 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 Follows with cardiology, Dr Monroy. Follows with vascular, Dr Keen, vascular. Carotids updated. Depression: we controlled on wellbutrin and prozac. Previously and alcoholic- sober x 7 years FELICIANO: On modafinil. Follows with Dr Wilkerson Obesity: Follows with Dr Shipman. History of lap sleeve gastrectomy. Currently on wellbutrin & naltrexone. Successfully lost 70 pounds with Wegovy-on 1.7-she transitioned to medicare and alternative GLP is being pursued.. Despite weight loss suffering from cervicalgia, thoracic and lumbar back pain due to large breasts. She would like reduction considered. She gets red irriated skin beneath the breast. She is open to physical therapy Preventive Mammo 08/2024, DXA 08/2024. Pap 07/10/2018 Colon cancer screening UTD-Dr Ze GUTHRIE see HPI PHYSICAL EXAM: GENERAL: Alert and oriented x 3. NAD EYES: EOMI. Anicteric. HENT: Moist mucous membranes. No scleral icterus. No cervical lymphadenopathy. LUNGS: Clear to auscultation bilaterally. CARDIOVASCULAR: Regular rate and rhythm. +murmur ABDOMEN: Soft, non-tender +bs EXTREMITIES: No edema. Non-tender. SKIN: No rashes or lesions. Warm. NEUROLOGIC: No focal neurological deficits. CN II-XII grossly intact PSYCHIATRIC: Cooperative. Appropriate mood and affect [facility] Medical History Senile purpura Tubular adenoma of colon History of mammogram FELICIANO (obstructive sleep apnea) Major depression, recurrent Subclavian artery stenosis GERD (gastroesophageal reflux disease) Moderate aortic stenosis Hyperlipidemia Hypertension Surgical History History of colonoscopy Family History Mother Crohn disease Multiple sclerosis Father Dementia Diabetes Stroke Brother Idiopathic pulmonary fibrosis Diabetes Coronary artery disease Brother Coronary artery disease Social History Household Members: Significant Other Housing: House Alcohol intake: former Year quit: 2006 Patient Tobacco Use Status: Former Tobacco user Tobacco use type: Cigarette Cigarettes Per Day: 1 Years Smoked: 30 e-Cigarette/Vaping Use: Never Used service: No Current occupational status: retired Cognitive needs: No Hearing needs: No Vision needs: No Questionnaire Thrive Questionnaire Date Thrive assessed: 07/06/24 I am a: Patient What is your living situation today?: I have a steady place to live Within the past 12 months, did the food you bought not last and you didn't have the money to get more?: Never true Within the past 12 months, did you worry whether your food would run out before you got money to buy more?: Never true Do you have trouble paying for medicines?: No Do you have trouble getting transportation to medical appointments?: No Do you have trouble paying your heating and electricity bill?: No Do you have trouble taking care of your child, family member or friend?: No Do you have trouble with day-to-day activities such as bathing, preparing meals, shopping, managing finances, etc.?: No Are you currently unemployed and looking for a job?: No Are you interested in more education?: No Please select the resources that you would like help with: None Currently or been in a relationship where the following occur: No concerns reported THRIVE Score: 0 AUDIT C Alcohol Use Questionnaire (AUDIT-C) 1. How often do you have a drink containing alcohol?: Never 3. How often do you have six or more drinks on one occasion?: Never Total Score: 0 RYNE-7 AMB Questionnaire RYNE-7 Date RYNE - 7 assessed: 07/12/24 Source: Developed by Drs. Jose Dumont, Tosha Duran, Isidro Garcia and colleagues, with an educational charles from [employer]. Physical exam (Primary Care) Vital Signs: Last Vital Signs Pulse 76 01/10/25 10:28 Resp 14 01/10/25 10:28 BP 122/84 01/10/25 10:28 Pulse Ox 98 01/10/25 10:28 Oxygen Delivery Method Room Air 01/10/25 10:28 BMI result Body Mass Index 26.9 Tobacco/Smoking Status: Tobacco use Status Tobacco use date assessed 01/10/25 01/10/25 10:31 Patient Tobacco Use Status Former Tobacco user 01/10/25 10:31 Tobacco use type Cigarette 01/10/25 10:31 e-Cigarette/Vaping Use Never Used 01/10/25 10:31 Thrive Assessment: Date of Thrive Assessment Date Thrive assessed 07/06/24 01/10/25 10:31 Currently or been in a relationship where the following occur: No concerns reported Coding Level of Care Code Est Pt Level 4 (35102) Complex EM visit Add On G2211 Diagnoses Recurrent major depressive disorder, in partial remission F33.41 Active/Remission status: in partial remission Primary hypertension I10 Hypertension type: primary hypertension Aortic valve replaced Z95.2 Macromastia N62 FELICIANO (obstructive sleep apnea) G47.33 Assessment & Plan Assessment & Plan (1) Major depression, recurrent: Code(s): F33.9 - Major depressive disorder, recurrent, unspecified Category: Medical Qualifiers: Active/Remission status: in partial remission Qualified Code(s): F33.41 - Major depressive disorder, recurrent, in partial remission (2) Hypertension: Code(s): I10 - Essential (primary) hypertension Category: Medical Qualifiers: Hypertension type: primary hypertension Qualified Code(s): I10 - Essential (primary) hypertension (3) Aortic valve replaced: Comment: needs dental prophylaxis Code(s): Z95.2 - Presence of prosthetic heart valve Category: Surgical (4) Macromastia: Code(s): N62 - Hypertrophy of breast Category: Medical (5) FELICIANO (obstructive sleep apnea): Code(s): G47.33 - Obstructive sleep apnea (adult) (pediatric) Category: Medical Plan MDD is stable on current medications CV: off amiodarone. Normal BP off medications. Continues statin. s/p valve replacement. dental ppx FELICIANO stable on cpap, continues modafinil Obesity-has done great with glp hopefully insurance approves for continued use Back pain, macromastia-referral to PT. Orders: Orders Hemoglobin A1c Today F33.41 - Major depressive disorder, recurrent, in partial remission, G47.33 - Obstructive sleep apnea (adult) (pediatric), I10 - Essential (primary) hypertension, Z95.2 - Presence of prosthetic heart valve Complete Blood Count Auto Diff Today F33.41 - Major depressive disorder, recurrent, in partial remission, G47.33 - Obstructive sleep apnea (adult) (pediatric), I10 - Essential (primary) hypertension, Z95.2 - Presence of prosthetic heart valve PT Evaluation and Treatment Today M54.50 - Low back pain, unspecified, N62 - Hypertrophy of breast Comprehensive Met. Panel Today F33.41 - Major depressive disorder, recurrent, in partial remission, G47.33 - Obstructive sleep apnea (adult) (pediatric), I10 - Essential (primary) hypertension, Z95.2 - Presence of prosthetic heart valve Lipid Panel Today F33.41 - Major depressive disorder, recurrent, in partial remission, G47.33 - Obstructive sleep apnea (adult) (pediatric), I10 - Essential (primary) hypertension, Z95.2 - Presence of prosthetic heart valve Vitamin D 25-OH (D2 and D3) Today F33.41 - Major depressive disorder, recurrent, in partial remission, G47.33 - Obstructive sleep apnea (adult) (pediatric), I10 - Essential (primary) hypertension, Z95.2 - Presence of prosthetic heart valve Medications: New lidocaine-prilocaine 2.5-2.5 % 1 appl topical .twice daily PRN 30 grams 3RF rash Refilled atorvastatin 40 mg PO BEDTIME 90 tabs 3RF 90 days
[2025-01-10 10:28] VITALS: BP 122/84; PULSE 76; RESP 14; O2SAT 98; BMI 26.9
--- OUTSIDE RECORDS SUMMARY | 2025-01-10 11:13 | XMS_ITS | Clinical Summary ---
Author Organization [address] [facility] Address [address] [place] [address] Phone Care Team Providers Care Associate Name Role Phone Eve Ash MD Primary Care Provider [phone] Allergies No known active allergies Medications atorvastatin (LIPITOR) 20 mg tablet Take 1 tablet (20 mg total) by mouth 1 (one) time each day. 05/07/20 22 Active buPROPion XL (WELLBUTRIN XL) 300 mg 24 hr tablet Take 1 tablet (300 mg total) by mouth 1 (one) time each day. 05/07/20 22 Active FLUoxetine (PROzac) 40 mg capsule Take 1 capsule (40 mg total) by mouth 1 (one) time each day. 06/28/19 23 Active modafiniL (PROVIGIL) 200 mg tablet TAKE 1 & 1/2 TABLETS BY MOUTH DAILY IN AM 06/26/19 23 Active omeprazole (PriLOSEC) [address] capsule 07/08/19 23 Active aspirin 81 mg EC tablet Take 1 tablet (81 mg total) by mouth 1 (one) time each day. Active FLUTICASONE PROPIONATE NASL by Nasal route. Active ondansetron (ZOFRAN) 4 mg tablet TAKE 1 TABLET (4 MG TOTAL) BY MOUTH EVERY 8 HOURS IF NEEDED FOR NAUSEA OR VOMITING FOR UP TO 7 DAYS. 18 tablet 1 07/06/19 25 Active lubiprostone (AMITIZA) 24 mcg capsuleIndicatio ns:Irritable bowel syndrome with constipation TAKE 1 CAPSULE BY MOUTH TWICE A DAY 180 capsule 11/17/19 Active tirzepatide (Mounjaro) 5 mg/0.5 mL injectionIndicat ions:Over weight Inject 0.5 mL (5 mg total) under the skin every 7 (seven) days for 4 doses. 2 mL 01/08/20 25 025 Active lisinopriL (PRINIVIL,ZESTRI L) 10 mg tablet Take 1 tablet (10 mg total) by mouth 1 (one) time each day. 06/14/20 025 Discontinued meloxicam (MOBIC) 15 mg tablet TAKE 1 TABLET BY MOUTH ONCE EVERY DAY NEEDED FOR PAIN 06/09/20 Discontinued plecanatide (Trulance) 3 mg tablet Take 1 tablet (3 mg total) by mouth 1 (one) time each day. 05/08/20 025 Discontinued semaglutide (Wegovy) 1.7 mg/0.75 mL injection penIndications:O gudelia weight Inject 1.7 mg under the skin every 7 (seven) days. 3 mL 3 10/14/19 025 Discontinued(Al ternate therapy) tirzepatide, weight loss, (Zepbound) 5 mg/0.5 mL injection Inject 0.5 mL (5 mg total) under the skin every 7 (seven) days. 2 mL 12/17/19 025 Discontinued Active Problems Problem Noted Date Diagnosed Date Aortic stenosis 2025 Gastro-esophageal reflux 2025 Hyperlipidemia 2025 Recurrent major depressive disorder ([facility]/HCC V24 ) 2025 Senile purpura ([facility]/HCC V24) 2025 Severe obstructive sleep apnea-hypopnea syndrome 2025 Stenosis of subclavian artery ([facility]/HCC V24) 12/15 Overview (2025): repeat US 10/22/11 Dr Londono failed subclavian steal syndrome surgery 10/2009. left, seeing vascular Class 2 obesity with body ma ss index (BMI) of 38.0 to 38.9 in adult 05/04/2024 Tubular adenoma of colon 09/23/2017 Hypertension 05/19/2007 Encounters Date Type Department Care Team Description 12/30/2024 Telephone Bariatric Surgery - [place] [address] [phone] Samson Shipman MD Med Refill (Mounjaro) 12/16/2024 2:00 PM EDT Office Visit Bariatric Surgery [facility] [address] [phone] Samson Shipman MD Over weight (Primary Dx) [...] Sign Reading Time Taken Comments Blood Pressure 133/81 12/16/2024 2:11 PM EDT Pulse 91 12/16/2024 2:11 PM EDT Temperature 35.8 C (96.5 F) 12/16/2024 2:11 PM EDT Respiratory Rate - - Oxygen Saturation - - Inhaled Oxygen Concentration - - Weight 68.9 kg (152 lb) 12/16/2024 2:11 PM EDT Height 160 cm (5' 3 ) 12/16/2024 2:11 PM EDT Body Mass Index 26.93 12/16/2024 2:11 PM EDT Plan of Treatment Upcoming Encounters Date Type Department Care Team (Late st Contact Info) Description 05/17/2025 1:30 PM EST Office Visit Bariatric Surgery - [place] [address] [phone] Samson Shipman MD [address] [phone] Health Maintenance Due Date Last Done Comments Breast Cancer Screening 1960 Cervical Cancer Screening: Pap Smear 01/06/1981 Colorectal Cancer Screening: Colonoscopy 07/15/2023 Hepatitis C Screening 07/15/2023 Medicare Annual Wellness Visit 07/15/2023 Osteoporosis Screening (Bone Density Screening) 07/15/2023 Social Influencers of Health Screening 07/15/2023 Depression Screening 06/16/2024 Hypertension/CHF/CAD Annual BMP Blood Test 08/06/2024 08/06/2023 Falls Risk Assessment 01/06/2025 COVID-19 Vaccine (2023- season) 2025 07/12/2024, 03/10/2023, 03/07/2023, Additional history exists Influenza Vaccine (#1) 2025 , 06/27/2023, 03/10/2023, Additional history exists Cholesterol Screening (Lipid Panel) 09/04/2027 09/03/2022 DTaP,Tdap,and Td Vaccines (5 - Td or Tdap) 04/10/2034 04/10/2024, 08/05/2022, 11/22/2015, Additional history exists Zoster Vaccines Completed 08/30/2022, 03/16, 12/27/2020, Additional history exists RSV Immunization Adult Patients Completed 06/27/2023 Pneumococcal Vaccine: 50+ Years Completed 07/12/2024 HIB Vaccines Aged Out No longer eligi [...] age to complete this topic Meningococcal B Vaccine Aged Out No l onger eligible based on patient's age to complete this topic RSV Immunization Patients Under 20 months Aged Out No longer eligible based on patient's age to complete this topic Varicella Vaccines Aged Out No longer eligible based on patient's age to complete this topic Procedures Procedure Name Priority Date/Time Associated Diagnosis Comments HM ANNUAL BMP BLOOD TEST Routine 08/06/2023 LIPID PANEL Routine 09/03/2022 from Last 3 Months or Most Recently Relevant to Health Maintenance Results * Annual BMP Blood Test (08/06/2023) Annual BMP Blood Test abstracted Historical Provider HEALTH MAINTENANCE Final Result * Lipid panel (09/03/2022) LDL/HDL Ratio 2 0 - 4 Triglycerides 109 0 - 150 mg/dL Cholesterol 190 0 - 200 mg/dL HDL 82 >=40 mg/dL LDL Cholesterol 87 0 - 100 mg/dL Blood Venous blood specimen / Unknown us Historical Provider LAB BLOOD ORDERABLES Roselyn l Result from Last 3 Months or Most Recently Relevant to Health Maintenance Insurance [facility] MEDICARE Care Teams Associate Relationship Specialty Start Date End Date Eve Ash MD [address] [place] [phone] PCP - General Internal Medicine 12/15/24
--- OUTSIDE RECORDS SUMMARY | 2025-01-10 11:13 | XMS_ITS | Clinical Summary ---
Author Organization [facility] Address [address] [place] [phone] Phone Care Team Providers Care Department Of Sociology Chair Name Role Phone Eve Hebert MD Primary Care Provider + Social History Tobacco Use Types Packs/Day Years Used Date Smoking Tobacco: Never Assessed Education Answer Date Recorded Are you interested in more education? Not on lobito e 10/11/2022 Are you concerned about learning? Not on file 10/11/2022 No 10/11/2022 No 10/11/2022 Digital Access Answer Date Recorded No 11/09/2022 No 11/09/2022 No 11/09/2022 Reliable internet access at home? Not on file 11/09/2022 Device with a working camera? Not on file Comments Unknown Sex and Gender Information Value Date Recorded Sex Assigned at Not on file Legal Sex Female 3:07 PM EDT Gender Identity Not on file Sexual Orientation Not on file Plan of Treatment Health Maintenance Due Date Last Done Comments Adult Td,Tdap Booster 1960 LIPID PANEL 1960 DEPRESSION SCREENING 1972 SMOKING Hx and SMOKELESS TOB ACCO SCREENING 01/06/1973 HEPATITIS C SCREENING 01/06/1978 HIV ONE-TIME SCREENING (18-6 5 YEARS) 01/06/1978 PAP SMEAR 01/06/1981 MAMMOGRAM 2000 COLOGUARD 01/06/2005 COLONOSCOPY 01/06/2005 COLORECTAL CANCER SCREENING 01/06/2005 FIT TEST 01/06/2005 FOBT 01/06/2005 SIGMOIDOSCOPY 01/06/2005 VIRTUAL COLONOSCOPY 01/06/2005 PNEUMOCOCCAL VACCINES (50+ y ears) (1 of 1 - PCV) 01/06/2010 ZOSTER VACCINES (1 of 2) 01/06/2010 COVID-19 VACCINE (2 - 2023-2 5 season) 2024 03/14/2021 RSV VACCINE (1 - 1-dose 75+ series) 01/06/2035 HEPATITIS A VACCINES Aged Out No long er eligible based on patient's age to complete this topic HIB VACCINES Aged Out No longer eligi ble based on patient's age to complete this topic MENINGOCOCCAL VACCINES (ACWY) Aged Out No longer eligible based on patient's age to complete this topic MENINGOCOCCAL VACCINES (B) Aged Out N o longer eligible based on patient's age to complete this topic Medical Devices Not on file Insurance [employer] CHOICE CHOICE CHOICE [facility] CHO[facility] Care Teams Department Of Sociology Chair Relationship Specialty Start Date End Date Eve Hebert MD [facility] [place] [address] PCP - General 04/02/18 Additional Source Comments The information contained in this document represents components of the legal health record. It is not the complete legal health record.[facility]
== END 2025-01-10 11:01 | disposition home or self-care (01) ==
LOC: HO.HMCFM 10:11
PROVIDERS: PCP Internal Medicine; Visit Provider Internal Medicine
DX: F33.41 Major depressive disorder, recurrent, in partial remission (principal); I10 Essential (primary) hypertension; Z95.2 Presence of prosthetic heart valve; N62 Hypertrophy of breast; G47.33 Obstructive sleep apnea (adult) (pediatric)

== ENCOUNTER → 2025-01-10 10:10 | Outpatient (BNVA) | payer OTHER, SELFPAY | PROVIDERS: PCP Internal Medicine; Visit Provider Internal Medicine | DX: I10 Essential (primary) hypertension (principal); F33.41 Major depressive disorder, recurrent, in partial remission; Z95.2 Presence of prosthetic heart valve; N62 Hypertrophy of breast; G47.33 Obstructive sleep apnea (adult) (pediatric) | CPT/HCPCS: 99212 ==